=== PATIENT | female | born 1980 | race Caucasian/White ===

== ENCOUNTER → 2017-01-23 | Outpatient (CLI) | payer OTHER ==
[~2017-01-23] MED LIST: ALBU0.21 IH; DULO30CA23 PO; HYDR-4246 PO; MONT10TA15 PO; MULT-933 PO; ONDA4TAB4 PO; ZOLM5TAB3 PO
--- NOTE | 2017-01-24 10:56 | DI ---
Indication: ITS.REASON: M54.5 PAIN; M54.16 RADICULOPATHY MRI LUMBAR SPINE W/O CONTRAST: Comparison: None Technique: T1 and T2-weighted imaging sequences in longitudinal maxilla image planes provided. Findings: Patient shows no vertebral body fractures or significant malalignments. There are degenerative changes in the L3-4, L4-5 and L5-S1 disc spaces which are narrowed with loss of usual bright signal. Conus area is unremarkable. No abnormal signal seen within the vertebral bodies. Axial images L1-2 disc space is unremarkable. L to three disc space is unremarkable. L3-4 disc shows moderate broad-based bulging with some early degenerative changes in the posterior facet joints but no marked spinal stenosis is seen. Neural foraminal regions are still well-preserved. L4-5 disc space shows moderate broad-based disc bulging with some slight posterior protrusion identified posteriorly and inferiorly. The overall canal diameter is still well-maintained. No marked neural foraminal narrowing noted. L5 S1 disc space shows mild broad-based bulging without significant compromise to the canal diameter with mild left-sided neural foraminal narrowing identified. Modic changes are seen on either side of the disc. Impression: 1. No acute fractures or significant malalignments. 2. Degenerative changes in the L3-4, L4-5 and L5-S1 disc spaces with the most prominent findings at L4-5 where there is midline central protrusion of disc material slightly inferiorly although no marked stenosis is identified. .
== END ==
LOC: IMA 16:18
PROVIDERS: ATTEND Family Medicine Sports Medicine
DX: M51.16 Intervertebral disc disorders with radiculopathy, lumbar region (principal); M51.17 Intervertebral disc disorders with radiculopathy, lumbosacral region; M54.5 Low back pain

== ENCOUNTER → 2017-02-01 | Outpatient (CLI) | payer OTHER ==
[~2017-02-01] MED LIST changes: +IOHEXOL 180 MG/ML 20ml INJECTION ONE; +LIDOCAINE 1% (10mg/ml) 5ml VIAL ONE; +MethylPREDNISolone ACETATE 40mg/1ml ONE
--- NOTE | 2017-02-01 10:12 | DI ---
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 The patient has not had any previous epidurals. The details of the procedure, including the benefits, risks, and alternatives were explained to the patient. All of their questions were answered. They stated that they understood and wished to proceed. Informed consent was then obtained. A pre-procedural timeout was performed to confirm the correct patient and procedure. Utilizing aseptic technique, local lidocaine anesthetic, and fluoroscopic guidance throughout, a 22-gauge spinal needle was directed into the lumbar epidural space via an interlaminar approach at the L4-5 level. Contrast was injected to assure proper positioning of the needle tip. A fluoroscopic image was then taken and archived. Subsequently, 120 mg Depo-Medrol was injected into the epidural space. The patient tolerated the procedure well. IMPRESSION: Successful lumbar epidural steroid injection. Fluoroscopy dose: 14.16 mGy (Cumulative air kerma) Rivas Lewis RPA/ETHAN performed this under my personal supervision. .
== END ==
LOC: IMA 08:05
PROVIDERS: ATTEND Family Medicine Sports Medicine
DX: M47.26 Other spondylosis with radiculopathy, lumbar region (principal); M51.26 Other intervertebral disc displacement, lumbar region
CPT/HCPCS: 62323; J1030; Q9965

== ENCOUNTER → 2017-03-18 | Outpatient (CLI) | payer OTHER ==
--- NOTE | 2017-03-18 15:15 | DI ---
Indication:ITS.REASON: M47.26 SPONDY W/ RAD; M51.26 Other intervertebral disc displacement Procedure:EPIDURAL INJ.SPINE W FLUO CATH LUMBAR EPIDURAL INJECTION: The patient has low back and radicular pain. The patient has had a previous epidural that provided excellent relief. The details of the procedure, including the benefits, risks, and alternatives were explained to the patient. All of their questions were answered. They stated that they understood and wished to proceed. Informed consent was then obtained. A pre-procedural timeout was performed to confirm the correct patient and procedure. Utilizing aseptic technique, local lidocaine anesthetic, and fluoroscopic guidance throughout, a 22-gauge spinal needle was directed into the lumbar epidural space via an interlaminar approach at the L4-5 level. Contrast was injected to assure proper positioning of the needle tip. A fluoroscopic image was then taken and archived. Subsequently, 120 mg Depo-Medrol was injected into the epidural space. The patient tolerated the procedure well. IMPRESSION: Successful lumbar epidural steroid injection. Fluoroscopy dose: 8.89 mGy (Cumulative air kerma) Rivas Lewis RPA/ETHAN performed this under my personal supervision. .
== END ==
LOC: IMA 13:51
PROVIDERS: ATTEND Family Medicine Sports Medicine
DX: M47.26 Other spondylosis with radiculopathy, lumbar region (principal); M51.26 Other intervertebral disc displacement, lumbar region
CPT/HCPCS: 62323; J1030; Q9965